=== PATIENT | female | born 1975 | race Caucasian/White ===

== ENCOUNTER 2021-04-04 06:37 | Day surgery (SDC) | payer OTHER, SELFPAY ==
[2021-03-19 14:38] VITALS: BMI 24.9
[2021-04-04] VITALS (8 sets, daily range): BP systolic 127–141; BP diastolic 81–95; PULSE 86–113; RESP 12–20; TEMP 36.4–37; O2SAT 97–100; BMI 35.1
[2021-04-04] MEDS: LACTATED RINGERS 1,000 ML 30 ML IV CONT ×3 (07:21→11:55)
--- NOTE | 2021-04-04 07:43 | WPDANESEPPF ---
Anes - Initial Pre Proc Eval Procedure: Operation Date: 04/04/21 08:30 Proposed Procedures p Bilateral Breast Augmentation Mammoplasty - Sean Huber MD Date/Time: 04/04/21 07:43 Surgeon: Sean Huber MD Pre Op Diagnosis: Micromastia Patient Data Age: 45 Gender: F Height: 1.66 m Weight: 97.2 kg Last Vital Signs Temp 37.0 C 04/04/21 07:16 Pulse 88 04/04/21 07:16 Resp 12 04/04/21 07:16 BP 129/91 H 04/04/21 07:16 Pulse Ox 100 04/04/21 07:16 Allergies Allergy/AdvReac Type Severity Reaction Status Date / Time No Known Allergies Allergy Verified 04/04/21 07:14 Home Medications Medication Instructions Recorded Confirmed Type estradiol 0.025 mg/24 hr weekly 1 patch TRANSDERMAL WEEKLY 12/30/20 04/04/21 History transdermal patch aspirin [Aspir-81] 81 mg PO DAILY 03/19/21 04/04/21 History buspirone 7.5 mg PO BID 03/19/21 04/04/21 History trazodone 10 mg PO PRN 03/19/21 04/04/21 History carisoprodol 350 mg tablet 350 mg PO TID PRN #21 tablet 03/24/21 04/04/21 Rx docusate sodium 100 mg capsule 100 mg PO DAILY #14 cap 03/24/21 04/04/21 Rx ondansetron HCl 4 mg tablet 4 mg PO Q8H #21 tablet 03/24/21 04/04/21 Rx oxycodone-acetaminophen 5 mg-325 1 tablet PO Q6H PRN #15 tablet 03/24/21 04/04/21 Rx mg tablet Patient hx anesthesia problems: post op nausea/vomiting Family hx anesthesia problems: none PMFSH Past Medical History Medical History Anxiety Surgical History Surgical History History of cholecystectomy History of hysterectomy Family History Family History Grandparent Breast cancer Social History Social History Smoking status: Unknown if ever smoked Alcohol intake: current Anes - Eval Final PreProcedure Day of Procedure 04/04/21 07:43 Patient weight: obese Heart: regular rate and rhythm Lungs: clear to auscultation Airway: Mallampati scale class II Neurological: alert and oriented Last oral intake: >/= 8 hours ASA classification: II Emergent: no Anesthetic plan: proceed Anesthesia type and monitoring: general LMA and standard monitoring Informed Consent: The patient's anesthetic plan and its attendant risks and benefits were discussed with the patient/family/POA. Questions were solicited and answers provided to the satisfaction of the patient/family/POA.
[2021-04-04] MEDS: SCOPOLAMINE 1.5 MG PATCH TRANSDERM (07:49)
--- NOTE | 2021-04-04 07:51 | WPDHPUPDATE1 ---
History and Physical Update Update Date/Time: 04/04/21 07:51 History and Physical has been reviewed, including an updated exam of the patient. There are NO changes in the patient's condition. Risks, benefits, and alternatives have been discussed and questions answered. Patient agrees to proceed with procedure.
--- NOTE | 2021-04-04 08:04 | W.PM.PROC2 ---
Procedure Note - Detailed Date of Procedure 04/04/21 Pre-op Diagnosis Micromastia Post-op Diagnosis same Procedure Performed Bilateral Augmentation Mammaplasty Surgeon Sean Huber MD Anesthesia general Findings Bilateral Mariela Burns SoftTouch 405cc Right - REF# [id number] SN [id number] Dual Plane 2 Left - REF# [id number] SN [id number] Dual Plane 2 Description of Procedure She is here today for bilateral breast augmentation. Previously and again today the risks, benefits, alternatives were discussed in extensive detail. I wanted her to be very realistic about the risks involved as well as expectations. We discussed aftercare and what to monitor for. Made sure answered all of her questions to her satisfaction today and consent was obtained. Marked in the preoperative holding area with their verification. The patient was taken to the operating room placed supine on the operating table. Anesthesia was provided by anesthesiology. A surgical time-out was taken. We cleansed the skin and 1% lidocaine and 0.25% Marcaine with epinephrine was used anesthetize as a field block. She was prepped and draped in a standard sterile fashion. Tegaderm nipple [place] were placed. A 15 blade used to make an incision along the inframammary fold. Dissection was continued at 45 degree angle until the chest wall as identified. I elevated above the pectoralis in a dual plane fashion as above. I incised the pectoralis major along its inferior border and completely released the inferior border leaving the medial border intact. I created a subpectoral pocket in the appropriate dimensions based on our preoperative planning for the implant. I then copiously irrigated with saline solution and verified a strict hemostasis. Next the use a triple antibiotic and Betadine containing solution to irrigate the pocket. I washed my gloves with the triple antibiotic and Betadine solution. We washed the implant immediately upon opening it with this solution and only opened it when we needed it. I used implant funnel and no-touch technique. The implant was introduced into the pocket using the funnel. Having verified positioning of the implant this was closed using 2-0 Vicryl followed by 3-0 Monocryl in a running subcuticular 4-0 Monocryl followed by tissue glue. Fluffs, Pascual wrap, and surgical bra were placed. Patient was awoke and taken to PACU without difficulty. All instrument sponge counts were correct at the end of the case. Estimated Blood Loss 20 Drains No Packing No Pathology none sent Complications No immediate complications Condition stable Disposition PACU
[2021-04-04] MEDS: ceFAZolin SODIUM 2 GM/20 ML SW SYRINGE IV PUSH (08:16)
[2021-04-04] MEDS: BUPIVACAINE HCL 0.25% 50 ML VIAL 40 ML INFILTRATE (08:41)
[2021-04-04] MEDS: LIDO 1%/EPINEPHRINE 1:100,000 20 ML VIAL 30 ML INFILTRATE (08:41)
[2021-04-04] MEDS: fentaNYL CITRATE INJ (*CRX) 100 MCG/2 ML VIAL 25 MCG IV PUSH ×4 (09:38→10:10)
--- NOTE | 2021-04-04 10:12 | WPDANESPN ---
Anes - Prog Note Post-Op Date/Time: 04/04/21 10:12 Cardiovascular status: normal Respiratory status: normal Airway patency: baseline Mental status: baseline Post-Op hydration status: normal Vital Signs: Last Vital Signs Temp 36.4 C 04/04/21 09:18 Pulse 98 04/04/21 09:33 Resp 18 04/04/21 09:33 BP 141/89 H 04/04/21 09:33 Pulse Ox 100 04/04/21 09:33 Pain Score (VAS): 2 Post-procedural complaints: none Patient Feedback: Patient satisfied with anesthetic care.
[2021-04-04] MEDS: oxyCODONE HCL (*CRX) 5 MG TAB IR PO (10:42)
== END 2021-04-04 11:03 | disposition home or self-care (01) ==
PROVIDERS: Visit Provider Surgery Plastic and Reconstructive Surgery
PROC: (CPT 19325; principal; 2021-04-04 08:30)
DX: N64.82 Hypoplasia of breast (principal)
CPT/HCPCS: 19325